=== PATIENT | female | born 1995 ===

== ENCOUNTER 2017-11-02 10:33 | Emergency (ER) | payer OTHER ==
--- NOTE | 2017-11-02 12:07 | ED PDOC ---
HPI: Skin/Bite Injury Time Seen by Provider: 11/02/17 11:26 Chief Complaint (Provider): Rash History Per: Patient Additional Complaint(s): 22 yo female, no PMH, presents to ED with complaints of itchy red rash that developed to the extensor surfaces of her arms bilaterally, and also scattered to her torso and the back of her knees. Pt notes rash developed [place] was [place] the beach, also she stayed at a friends house who had a cat. Pt took a Benadryl tab without relief. Past Medical History Reviewed: Nursing Documentation, Vital Signs Vital Signs: Last Vital Signs Temp 98.2 F 11/02/17 11:02 Pulse 94 H 11/02/17 11:02 Resp 19 11/02/17 11:02 BP 114/80 11/02/17 11:02 Pulse Ox 97 11/02/17 11:02 - Medical History PMH: No Chronic Diseases - Surgical History Surgical History: No Surg Hx - Family History Family History: States: No Known Family Hx - Living Arrangements Living Arrangements: With Family - Home Medications Home Medications: Ambulatory Orders Medication Instructions Recorded Methylprednisolone [Medrol Dose 4 mg PO DAILY #21 mg 11/02/17 Pack (21 tabs)] Petrolatum,White [Aquaphor Baby 41 cre TP BID #1 oin 11/02/17 Healing Ointment] Triamcinolone 0.1% [Triamcinolone 1 appl TP BID #1 tube 11/02/17 Acetonide] - Allergies Allergies/Adverse Reactions: Allergies Allergy/AdvReac Type Severity Reaction Status Date / Time No Known Allergies Allergy Verified 11/02/17 11:49 Review of Systems ROS Statement: Except As Marked, All Systems Reviewed And Found Negative Skin: Positive for: Rash Physical Exam - Reviewed Nursing Documentation Reviewed: Yes Vital Signs Reviewed: Yes - Physical Exam Appears: Positive for: Well, Non-toxic, No Acute Distress Head Exam: Positive for: ATRAUMATIC, NORMAL INSPECTION, NORMOCEPHALIC Skin: Positive for: Normal Color, Warm, Rash (erythematous scaled rash to extensor surfaces up b/l upper extremites and lower. ) Eye Exam: Positive for: EOMI, Normal appearance, PERRL ENT: Positive for: Normal ENT Inspection Neck: Positive for: Normal, Painless ROM Cardiovascular/Chest: Positive for: Regular Rate, Rhythm Respiratory: Positive for: CNT, Normal Breath Sounds Gastrointestinal/Abdominal: Positive for: Normal Exam, Soft Back: Positive for: Normal Inspection Extremity: Positive for: Normal ROM Neurologic/Psych: Positive for: Alert, Oriented - ECG O2 Sat by Pulse Oximetry: 97 Medical Decision Making Medical Decision Making: supportive care measures discussed. RX given for medrol dose pack, triamcinolone cream and aquaphor Disposition - Clinical Impression Clinical Impression: Eczema - Patient ED Disposition Is Patient to be Admitted: No - Disposition Referrals: [facility] [Outside] Disposition: Routine/Home Disposition Time: 12:07 Condition: STABLE Prescriptions: Methylprednisolone [Medrol Dose Pack (21 tabs)] 4 mg PO DAILY #21 mg Petrolatum,White [Aquaphor Baby Healing Ointment] 41 cre TP BID #1 oin Triamcinolone 0.1% [Triamcinolone Acetonide] 1 appl TP BID #1 tube Instructions: Eczema (Atopic Dermatitis)
[2017-11-02 15:42] VITALS: BP 118/75; PULSE 76; RESP 18; TEMP 98; O2SAT 100
== END 2017-11-02 12:30 | disposition home or self-care (01) ==
LOC: H.ER 10:33
DX: L30.9 Dermatitis, unspecified (principal)